=== PATIENT | female | born 1990 | race Caucasian/White ===

== ENCOUNTER 2017-06-09 17:52 | Emergency (ER) | payer OTHER ==
[~2017-06-09] VITALS: Ht 157.5 cm; Wt 65.0 kg
[2017-06-09 18:57] VITALS: BP 129/97
[2017-06-09] MEDS ORDERED: FLEXERIL10 MG PO (20:54)
[2017-06-09] MEDS ORDERED: NAPROXEN500 MG PO (20:54)
== END 2017-06-09 21:10 | disposition home or self-care (01) ==
LOC: EME 17:52
DX: S16.1XXA Strain of muscle, fascia and tendon at neck level, initial encounter (principal); S09.8XXA Other specified injuries of head, initial encounter; W20.8XXA Other cause of strike by thrown, projected or falling object, initial encounter; Y99.0 Civilian activity done for income or pay; F17.200 Nicotine dependence, unspecified, uncomplicated
CPT/HCPCS: 99281; 99284